=== PATIENT | male | born 1960 | race Caucasian/White ===

== ENCOUNTER 2021-03-08 14:06 | Outpatient (CLI) | payer BC, SELFPAY ==
--- NOTE | ~2021-03-08 | US_ITS ---
US art doppler w press LE BI INDICATION: Peripheral vascular disease. TECHNIQUE: Segmental pressures and plethysmographic and Doppler waveforms of the brachial and lower e xtremity arteries were obtained. COMPARISON: None. FINDINGS: Right and left brachial artery pressures of 136 mm Hg and 145 mm Hg, respectively, are concordant (no rmal difference <= 30 mmHg). The right ankle-brachial index (CALISTA) is 1.31 (normal >= 0.9-1.0). The right great toe-brachial index (TBI) is 0.79 (normal >= 0.60). The left CALISTA is 1.26. The left TBI is 0.76. IMPRESSION: 1. Normal bilateral ankle and toe brachial indices. Reviewed, dictated and finalized at location A.
== END 2021-03-08 14:07 | disposition home or self-care (01) ==
PROVIDERS: PCP Family Medicine; Visit Provider Nurse Practitioner Family
DX: I87.8 Other specified disorders of veins (principal); I73.9 Peripheral vascular disease, unspecified
CPT/HCPCS: 93923